=== PATIENT | male | born 2000 ===

== ENCOUNTER 2024-03-27 14:26 | Emergency (ER) | payer OTHER, SELFPAY ==
--- NOTE | ~2024-03-27 | XR_ITS ---
XR finger 2nd LT min 2V Ordering provider: Yvonne Hansen PA-C History: . lac . Comparison: None. FINDINGS: BONES: No acute fracture or dislocation. JOINT SPACES: Normal. SOFT TISSUES: Normal. IMPRESSION: No acute osseous abnormality. Reviewed, dictated and finalized at location A.
[2024-03-27 14:34] VITALS: BP 123/88; PULSE 82; RESP 18; TEMP 36.4; O2SAT 99
--- NOTE | 2024-03-27 15:10 | ED.WOUNDLAC ---
HPI - Wound/Laceration General Chief Complaint: Wound/Laceration <Yvonne Hansen PA-C - Last Filed: 03/27/24 16:55> Stated Complaint: L HAND LAC ?ARTERIAL <Yvonne Hansen PA-C - Last Filed: 03/27/24 16:55> Time Seen by Provider: 03/27/24 14:46 <Yvonne Hansen PA-C - Last Filed: 03/27/24 16:55> Source: patient <Yvonne Hansen PA-C - Last Filed: 03/27/24 16:55> Mode of arrival: ambulatory <Yvonne Hansen PA-C - Last Filed: 03/27/24 16:55> Limitations: no limitations <Yvonne Hansen PA-C - Last Filed: 03/27/24 16:55> History of Present Illness HPI narrative: This is a 23 year old male that presents to the ER for laceration to the left 2nd finger sustained prior to arrival. Reports he reached into a bag at work and cut his finger. Is unsure what he cut his finger on. Reports he was unable to get the bleeding to stop which prompted him to be seen. He is not up to date on tetanus vaccination. Denies decreased ROM or numbness. <Yvonne Hansen PA-C - Last Filed: 03/27/24 16:55> Review of Systems Review of Systems: CONSTITUTIONAL: Denies fever SKIN: Reports laceration NEUROLOGIC: Denies numbness <Yvonne Hansen PA-C - Last Filed: 03/27/24 16:55> All systems reviewed & are unremarkable except as noted in HPI and below <Yvonne Hansen PA-C - Last Filed: 03/27/24 16:55> [facility], LAT[facility] Past Medical History Medical History: Medical History (Updated 03/27/24 @ 15:17 by Yvonne Hansen PA-C) History of seizure disorder <Yvonne Hansen PA-C - Last Filed: 03/27/24 16:55> Social History Social History: Social History (Updated 03/27/24 @ 15:14 by Yvonne Hnasen PA-C) Smoking status: Current every day smoker <Yvonne Hansen PA-C - Last Filed: 03/27/24 16:55> Exam Narrative: GENERAL: Well-appearing, well-nourished, and in no acute distress. HEAD: Normocephalic, atraumatic. EYES: EOMI. EXTREMITIES: Normal range of motion. No edema. 1.5 cm linear laceration into subcutaneous tissue to the left 2nd finger dorsal surface at the base. Oozing dark blood. Normal capillary refill SKIN: Warm, dry, no rash. NEURO: No focal deficits. Alert and oriented x3. PSYCH: Normal mood and affect <Yvonne Hansen PA-C - Last Filed: 03/27/24 16:55> Course Course Emergency Course: Patient educated on further wound care and importance of follow up with hand specialist <Yvonne Hansen PA-C - Last Filed: 03/27/24 16:55> CAR SCRUBBER/PA Physician Supervision For this patient encounter, I reviewed the CAR SCRUBBER or PA documentation, treatment plan, and medical decision making; and I had [id number] time with this patient. <Chong Aleman MD - Last Filed: 03/27/24 21:53> Vital Signs Vital signs: Vital Signs Temperature 97.5 F L 03/27/24 14:34 Pulse Rate 82 03/27/24 14:34 Respiratory Rate 18 03/27/24 14:34 Blood Pressure 123/88 03/27/24 14:34 Pulse Oximetry 99 03/27/24 14:34 Oxygen Delivery Room Air 03/27/24 14:34 Temperature 97.5 F L 03/27/24 14:34 Pulse Rate 82 03/27/24 14:34 Respiratory Rate 18 03/27/24 14:34 Blood Pressure 123/88 03/27/24 14:34 Pulse Oximetry 99 03/27/24 14:34 Oxygen Delivery Room Air 03/27/24 14:34 <Yvonne Hansen PA-C - Last Filed: 03/27/24 16:55> Vital Signs Temperature 97.5 F L 03/27/24 14:34 Pulse Rate 82 03/27/24 14:34 Respiratory Rate 18 03/27/24 14:34 Blood Pressure 123/88 03/27/24 14:34 Pulse Oximetry 99 03/27/24 14:34 Oxygen Delivery Room Air 03/27/24 14:34 Temperature 97.5 F L 03/27/24 14:34 Pulse Rate 82 03/27/24 14:34 Respiratory Rate 18 03/27/24 14:34 Blood Pressure 123/88 03/27/24 14:34 Pulse Oximetry 99 03/27/24 14:34 Oxygen Delivery Room Air 03/27/24 14:34 <Chong Aleman MD - Last Filed: 03/27/24 21:53> Procedures Laceration Laceration 1: Date: 03/27/24 <Yvonne Hansen PA-C - Last Filed: 03/27/24 16:55> Ti
--- NOTE | 2024-03-27 16:29 | PC.NURSE ---
Pt left prior of receiving medications including Tetanus shot. Pt left prior signing and receiving DC instructions.
== END 2024-03-27 16:32 | disposition left against medical advice (07) ==
PROVIDERS: Emergency Provider Physician Assistant
DX: S61.211A Laceration without foreign body of left index finger without damage to nail, initial encounter (principal); G40.909 Epilepsy, unspecified, not intractable, without status epilepticus; F17.200 Nicotine dependence, unspecified, uncomplicated; W26.9XXA Contact with unspecified sharp object(s), initial encounter
CPT/HCPCS: 12001; 73140; 99283

== ENCOUNTER 2024-06-09 08:25 | Emergency (ER) | payer BC, SELFPAY ==
--- NOTE | ~2024-06-09 | CT_ITS ---
EXAMINATION: CT hand LT w con DATE: 06/09/2024 10:52 INDICATION: Wound infection at the left hand TECHNIQUE: High resolution computed tomography (CT) of the left hand was performed with 100 mL Omnipa que-350 intravenous contrast. Additional sagittal and coronal reconstructions were performed. Automat ed exposure control and iterative reconstruction technique were employed. The dose-length product was 524.08 mGy-cm. COMPARISON: None FINDINGS: Bone alignment is normal. No fracture. Joint spaces are normal. No or periosteal reaction, cortical e rosions or other ostial lysis to suggest osteomyelitis. There is heterogeneous enhancement the muscul ature at the thenar eminence with stranding in the overlying subcutaneous fat fissure cellulitis deep er myositis. No clearly demarcated, organized peripheral enhancing abscess. No soft tissue gas. The t endons and remaining muscles in the hand appear unremarkable. IMPRESSION: 1. Likely myositis and overlying cellulitis at the thenar eminence of the hand but without soft tissu e gas or organized-appearing peripherally enhancing abscess. 2. No osseous abnormality. Reviewed, dictated and finalized at location A. OR PRODUCER IMPRESSION: 1. Likely myositis and overlying cellulitis at the thenar eminence of the hand but without soft tissue gas or organized-appearing peripherally enhancing absce ss. 2. No osseous abnormality.
[2024-06-09 08:43] VITALS: BP 140/73; PULSE 88; RESP 18; TEMP 36.9; O2SAT 99
--- NOTE | 2024-06-09 09:32 | ED.WOUNDLAC ---
HPI - Wound/Laceration General Chief Complaint: Recheck/Abnormal Lab/Rx Stated Complaint: injury recheck Time Seen by Provider: 06/09/24 09:11 Source: patient Mode of arrival: ambulatory Limitations: no limitations History of Present Illness HPI narrative: This is a 24 year old male that presents to the ER for wound to the left hand. Reports he sustained a dog bite to the left hand about a month ago. He was seen at [facility] for this. He was supposed to have plastic surgery, but they did not take his insurance. He has a left his initial bandage in place this entire month. He was starting to have foul-smelling drainage come out of the bandage the last couple of days which prompted him to be seen. Related Data Allergies Allergy/AdvReac Type Severity Reaction Status Date / Time peas Allergy Severe Anaphylaxis Verified 06/09/24 08:49 Review of Systems Review of Systems: CONSTITUTIONAL: Denies fever SKIN: Reports abnormal drainage All systems reviewed & are unremarkable except as noted in HPI and below PMFSH Past Medical History Medical History (Updated 06/09/24 @ 19:23 by Yvonne Hansen PA-C) History of seizure disorder Social History Social History (Updated 03/27/24 @ 15:14 by Yvonne Hansen PA-C) Smoking status: Current every day smoker Exam Narrative: GENERAL: Well-appearing, well-nourished, and in no acute distress. HEAD: Normocephalic, atraumatic. EYES: EOMI. EXTREMITIES: Only a small amount of range of motion in the left thumb with large laceration to the palmar surface of the hand at the base of the thumb. Wound dehiscence noted with foul smelling drainage. Swelling noted, no obvious erythema SKIN: Warm, dry, no rash. NEURO: No focal deficits. Alert and oriented x3. PSYCH: Normal mood and affect Course Course Emergency Course: patient updated on workup and need for transfer for evaluation by hand surgery Consultations Consultation #1: Spoke with Dr. Alarcon, hand surgery at [facility], about patient and workup. Recommends transfer for further evaluation by hand surgery Date: 06/09/24 Consultation #2: Spoke with hospitalist, Dr. Saxena, about patient and workup who accepts patient as transfer to [facility] Date: 06/09/24 Vital Signs Vital signs: Vital Signs Temperature 98.4 F 06/09/24 08:43 Pulse Rate 88 06/09/24 08:43 Respiratory Rate 18 06/09/24 08:43 Blood Pressure 140/73 06/09/24 08:43 Pulse Oximetry 99 06/09/24 08:43 Oxygen Delivery Room Air 06/09/24 08:43 Temperature 98.4 F 06/09/24 08:43 Pulse Rate 73 06/09/24 17:16 Respiratory Rate 18 06/09/24 17:16 Blood Pressure 153/99 H 06/09/24 17:16 Pulse Oximetry 99 06/09/24 17:16 Oxygen Delivery Room Air 06/09/24 08:43 MDM - Wound/Laceration MDM Narrative Medical decision making narrative: patient presents to the emergency department after a dog bite to his left hand sustained month ago. Had left his initial bandage in place from [facility]. copious amounts of abnormal discharge noted upon removing dressing. Wound was cleansed with notable wound dehiscence. Swelling and redness noted to the thumb with markedly decreased range of motion. He is afebrile and nontoxic appearing. Cbc without leukocytosis. ESR is normal. CRP 2.6. Hand CT shows likely myositis with overlying cellulitis. No abscess or osseous abnormality. patient updated on workup and need for transfer for evaluation by hand surgery. Spoke with Dr. Alarcon, hand surgery at [facility], about patient and workup. Agrees with transfer for further evaluation by hand surgery. Spoke with hospitalist, Dr. Saxena, about patient and workup who accepts patient as transfer to [facility] Differential Diagnosis Differential diagnosis: Likely abscess and other (cellulitis) Lab Data Attestation: I reviewed the patient's lab results. 06/09/24 09:55 06/09/24 09:55 Labs: Lab Results 06/09/24 Range/Units 09:55 WBC 9.2 (4.5-10.0) K/mm3 RBC 5.14 (4.6-6.20) M/mm3 Hgb 15.2 (14.0-18.0) g/dL Hct 45.2 (42.0-52.0) % MCV 87.9 (80-100) fl MCH 29.6 (26-34) pg MCHC 33.6 (32-36) g/dl RDW 12.4 (11.5-14.5) % Plt Count 285 (150-375) k/mm3 MPV 9.2 (7.4-10.4) fl Immature Gran % (Auto) 0.2 (0-0.5) % Neut % (Auto) 60.5 (45.5-73.1) % Lymph % (Auto) 26.7 (18.3-44.2) % Cotton % (Auto) 10.2 H (2.6-8.5) % Eos % (Auto) 2.0 (0-4.4) % Baso % (Auto) 0.4 (0.2-1.2) % Lymph # (Auto) 2.45 (0.9-3.2) K/mm3 Cotton # (Auto) 0.9 H (0.1-0.6) K/mm3 Eos # (Auto) 0.2 (0-0.3) K/mm3 Baso # (Auto) 0.0 (0.0-0.1) K/mm3 Abs Immat Gran (auto) 0.02 (0.00-0.031) K/mm3 Absolute Neuts (auto) 5.5 (1.3-6.7) K/mm3 Absolute Nucleated RBC 0.000 (0.0-0.012) K/mm3 Nucleated RBC % 0.0 (0.0-0.2) % ESR 14 (0-20) mm/hr Sodium 142 (137-145) mmol/L Potassium 3.6 (3.4-5.0) mmol/L Chloride 112 H (98-107) mmol/L Carbon Dioxide 21 L (22-30) mmol/L Anion Gap 9 (4-12) mmol/L BUN 11 (9-20) mg/dL Creatinine 0.90 (0.7-1.3) mg/dL Estim Creat Clear Calc 137 ml/min Estimated GFR > 60 (59 - ) Glucose 104 (65-110) mg/dL Calcium 9.4 (8.4-10.2) mg/dL C-Reactive Protein 2.6 H (<1.0) mg/dL Imaging Data Radiologist's impression: ITS Impressions Hand CT 06/09/24 11:03 IMPRESSION: 1. Likely myositis and overlying cellulitis at the thenar eminence of the hand but without soft tissue gas or organized-appearing peripherally enhancing abscess. 2. No osseous abnormality. Critical Care Time Critical Care Time Critical Care Time: No Discharge Plan Discharge Clinical Impression: Cellulitis of left hand Patient Disposition: Acute Care Hospital Condition: Stable Patient Language: [place] Prescriptions: No Action cephalexin 500 mg capsule 500 mg PO Q6H 7 Days Qty: 28 0RF Follow-up/Referrals: PHYSICIAN,BUDGET COORDINATOR [Non-Staff] -
[2024-06-09 10:08] LABS: Basophils Percent Auto 0.4 % (0.2-1.2); Eosinophils Absolute Auto 0.2 K/mm3 (0-0.3); Hematocrit 45.2 % (42.0-52.0); Hemoglobin 15.2 g/dL (14.0-18.0); Immature Granulocyte Absolute 0.02 K/mm3 (0.00-0.031); Immature Granulocyte Percent A 0.2 % (0-0.5); Lymphocytes Absolute Auto 2.45 K/mm3 (0.9-3.2); Lymphocytes Percent Auto 26.7 % (18.3-44.2); Mean Corpuscular HGB Conc 33.6 g/dl (32-36); Mean Corpuscular Hemoglobin 29.6 pg (26-34); Mean Corpuscular Volume 87.9 fl (80-100); Mean Platelet Volume 9.2 fl (7.4-10.4); Monocytes Absolute Auto 0.9 K/mm3 (0.1-0.6); Monocytes Percent Auto 10.2 % (2.6-8.5); Neutrophils Absolute Auto 5.5 K/mm3 (1.3-6.7); Neutrophils Percent Auto 60.5 % (45.5-73.1); Platelet Count Result 285 k/mm3 (150-375); Red Blood Count 5.14 M/mm3 (4.6-6.20); Red Cell Distribution Width 12.4 % (11.5-14.5); White Blood Count 9.2 K/mm3 (4.5-10.0)
[2024-06-09 10:24] LABS: Anion Gap 9 mmol/L (4-12); Blood Urea Nitrogen 11 mg/dL (9-20); CRP 2.6 mg/dL (<1.0); Calcium 9.4 mg/dL (8.4-10.2); Carbon Dioxide 21 mmol/L (22-30); Chloride 112 mmol/L (98-107); Estimated CRCL calculation 137 ml/min; Estimated Glomerular Filt Rate > 60; Glucose 104 mg/dL (65-110); Potassium 3.6 mmol/L (3.4-5.0); Sodium 142 mmol/L (137-145)
[2024-06-09 11:24] LABS: Erythrocyte Sedimentation Rate 14 mm/hr (0-20)
[2024-06-09] MEDS: AMPICILLIN SULB 3 GM/NS 100 ML 3 GM/100 ML VIAL IVPB ×2 (11:44→18:14)
[2024-06-09 17:16] VITALS: BP 153/99; PULSE 73; RESP 18; O2SAT 99
== END 2024-06-09 19:48 | disposition short-term general hospital (02) ==
PROVIDERS: Emergency Provider Physician Assistant
DX: L03.114 Cellulitis of left upper limb (principal)
CPT/HCPCS: 36415; 73201; 80048; 85025; 85652; 86140; 87040; 87070; 87075; 87181; 87205; 96365; 96366; 99284; J0295; Q9967